=== PATIENT | male | born 1940 | race Caucasian/White ===

== ENCOUNTER → 2016-10-20 | Outpatient (CLI) | payer MEDICARE, OTHER ==
[~2016-10-20] MED LIST: ASPIRIN ADULT L81 M2 PO; ATORVASTATIN CA20 M1 PO; BACTRIM 400 MG-1 TAB PO; CALCIUM CARB500 MG PO; COLACE100 MG PO; FISH OIL500 M1 PO; KLOR-CON 1010 ME1 PO; LIDEX 0.05% CRE15 GM T; LOMOTIL 0.025 M1 TA1 PO; NORCO 5-325 TA1 EACH PO; PLAVIX75 M1 PO; PREDNISONE10 MG PO; RANEXA500 M1 PO; TAMSULOSIN HCL0.4 MG PO; VITAMIN B1250 MCG PO; VITAMIN D32000 UNIT PO; ZOSYN 4 GM-0.51 PD1 IV
== END | disposition home or self-care (01) ==
LOC: US 13:17
DX: N39.0 Urinary tract infection, site not specified (principal); N40.0 Benign prostatic hyperplasia without lower urinary tract symptoms; N28.1 Cyst of kidney, acquired; Z87.442 Personal history of urinary calculi

== ENCOUNTER 2020-11-25 15:11 | Inpatient (IN) | payer OTHER ==
[~2020-11-25] VITALS: Ht 182.8 cm; Wt 80.5 kg
[2020-11-25 16:17] VITALS: BP 138/72
[2020-11-25 16:59] LABS: BILIRUBIN 1+ (Negative); BLOOD 3+ (Negative); CLARITY Turbid (Clear); COLOR Dark Yellow (Yellow); GLUCOSE Trace (Negative); KETONE Trace (Negative); LEUKO ESTERASE 3+ (Negative); NITRITE Positive (Negative); PH 5.5 (4.5-8.0); SPECIFIC GRAVITY 1.025 (1.001-1.030)
[2020-11-25 17:20] LABS: BASO % 0.2 % (0.0-1.0); HEMATOCRIT 39.8 % (42.0-52.0); LYMPH # 1.1 10*3/uL (1.3-4.4); LYMPH % 5.8 % (27.0-41.0); MEAN CELL VOLUME 91.5 fl (80.0-94.0); MEAN CORPUSCULAR HGB 31.3 pg (27.0-31.0); MEAN CORPUSCULAR HGB CONC 34.2 g/dl (33.0-37.0); MONO # 1.2 10*3/uL (0.1-1.0); MONO % 6.5 % (3.0-9.0); NEUT # 16.4 10*3/uL (2.3-7.9); NEUT % 86.9 % (47.0-73.0); PLATELET COUNT AUTOMATED 184 10*3/uL (130-400); RED BLOOD COUNT 4.35 10*6/uL (4.50-5.90); RED CELL DISTRI WIDTH 12.6 % (0-14.5); WHITE BLOOD COUNT 18.9 10*3/uL (4.8-10.8)
[2020-11-25 17:28] LABS: WBC TNTC wbc/hpf (0-5)
[2020-11-25 17:44] LABS: ALBUMIN 3.4 gm/dl (3.1-4.5); ALKALINE PHOSPHATASE 91 U/L (45-117); BUN 17 mg/dl (7-24); CHLORIDE 104 mmol/L (98-107); CREATININE 1.26 mg/dL (0.70-1.30); POTASSIUM 3.7 mmol/L (3.5-5.1); SGOT/AST 16 IU/L (3-35); SGPT/ALT 26 U/L (12-78); SODIUM 135 mmol/L (136-145); TOTAL PROTEIN 6.8 gm/dL (6.4-8.2)
[2020-11-25 17:45] LABS: TROPONIN I < 0.015 ng/ml (<0.045)
[2020-11-25 22:00] VITALS: BP 159/63
[2020-11-26] VITALS: BP 150/68
[2020-11-26 06:15] LABS: BASO % 0.2 % (0.0-1.0); HEMATOCRIT 38.3 % (42.0-52.0); LYMPH # 1.1 10*3/uL (1.3-4.4); LYMPH % 6.6 % (27.0-41.0); MEAN CELL VOLUME 94.3 fl (80.0-94.0); MEAN CORPUSCULAR HGB 31.3 pg (27.0-31.0); MEAN CORPUSCULAR HGB CONC 33.2 g/dl (33.0-37.0); MEAN PLATELET VOLUME 10.5 fl (9.6-12.3); MONO # 0.9 10*3/uL (0.1-1.0); MONO % 5.5 % (3.0-9.0); NEUT % 86.6 % (47.0-73.0); PLATELET COUNT AUTOMATED 184 10*3/uL (130-400); RED BLOOD COUNT 4.06 10*6/uL (4.50-5.90); WHITE BLOOD COUNT 16.1 10*3/uL (4.8-10.8)
[2020-11-26 06:35] LABS: ALBUMIN 3.1 gm/dl (3.1-4.5); ALKALINE PHOSPHATASE 82 U/L (45-117); BUN 19 mg/dl (7-24); CHLORIDE 102 mmol/L (98-107); CREATININE 1.24 mg/dL (0.70-1.30); POTASSIUM 3.4 mmol/L (3.5-5.1); SGOT/AST 16 IU/L (3-35); SGPT/ALT 21 U/L (12-78); SODIUM 137 mmol/L (136-145); TOTAL PROTEIN 6.7 gm/dL (6.4-8.2)
[2020-11-26 08:00] VITALS: BP 122/62
[2020-11-26] MEDS ORDERED: VITAMIN B-121000 MC2 PO (10:02)
[2020-11-26 12:00] VITALS: BP 155/89
[2020-11-26 16:00] VITALS: BP 137/75
[2020-11-26 20:00] VITALS: BP 104/59
[2020-11-27] VITALS: BP 115/55
[2020-11-27 06:57] LABS: BASO % 0.2 % (0.0-1.0); EOS # 0.1 10*3/uL (0.0-0.4); EOS % 0.7 % (1.0-4.0); LYMPH # 1.6 10*3/uL (1.3-4.4); LYMPH % 14.7 % (27.0-41.0); MEAN CELL VOLUME 94.3 fl (80.0-94.0); MEAN CORPUSCULAR HGB 31.8 pg (27.0-31.0); MEAN CORPUSCULAR HGB CONC 33.7 g/dl (33.0-37.0); MEAN PLATELET VOLUME 10.4 fl (9.6-12.3); MONO # 0.7 10*3/uL (0.1-1.0); MONO % 6.2 % (3.0-9.0); NEUT # 8.5 10*3/uL (2.3-7.9); NEUT % 77.7 % (47.0-73.0); PLATELET COUNT AUTOMATED 160 10*3/uL (130-400); RED BLOOD COUNT 3.71 10*6/uL (4.50-5.90); RED CELL DISTRI WIDTH 13.1 % (0-14.5); WHITE BLOOD COUNT 10.9 10*3/uL (4.8-10.8)
[2020-11-27 07:05] LABS: ALBUMIN 2.7 gm/dl (3.1-4.5); ALKALINE PHOSPHATASE 76 U/L (45-117); BUN 15 mg/dl (7-24); CHLORIDE 106 mmol/L (98-107); CREATININE 0.96 mg/dL (0.70-1.30); POTASSIUM 3.8 mmol/L (3.5-5.1); SGOT/AST 18 IU/L (3-35); SGPT/ALT 21 U/L (12-78); SODIUM 137 mmol/L (136-145)
[2020-11-27 08:00] VITALS: BP 105/65
[2020-11-27] MEDS ORDERED: CIPRO500 MG PO (11:45)
== END 2020-11-27 13:25 | disposition home or self-care (01) | DRG 872 ==
LOC: ED 15:11 → EDHOLD 19:51 → 5E 19:51
PROVIDERS: Emergency Medicine; Internal Medicine; ADMIT Family Medicine; ATTEND Family Medicine
DX: A41.9 Sepsis, unspecified organism (principal); N30.01 Acute cystitis with hematuria; E44.1 Mild protein-calorie malnutrition; N41.0 Acute prostatitis; I25.810 Atherosclerosis of coronary artery bypass graft(s) without angina pectoris; N18.31 Chronic kidney disease, stage 3a; R73.9 Hyperglycemia, unspecified; D64.9 Anemia, unspecified; N40.1 Benign prostatic hyperplasia with lower urinary tract symptoms; E87.6 Hypokalemia; E78.5 Hyperlipidemia, unspecified; B96.20 Unspecified Escherichia coli [E. coli] as the cause of diseases classified elsewhere; R91.8 Other nonspecific abnormal finding of lung field; R39.12 Poor urinary stream; I50.9 Heart failure, unspecified; I25.2 Old myocardial infarction; Z95.1 Presence of aortocoronary bypass graft; Z86.14 Personal history of Methicillin resistant Staphylococcus aureus infection; Z87.440 Personal history of urinary (tract) infections; Z98.1 Arthrodesis status; Z82.49 Family history of ischemic heart disease and other diseases of the circulatory system; Z80.8 Family history of malignant neoplasm of other organs or systems; Z85.828 Personal history of other malignant neoplasm of skin; Z95.0 Presence of cardiac pacemaker; Z87.891 Personal history of nicotine dependence; Z79.899 Other long term (current) drug therapy; Z79.02 Long term (current) use of antithrombotics/antiplatelets; Z68.24 Body mass index [BMI] 24.0-24.9, adult

== ENCOUNTER 2022-06-24 09:46 | Emergency (ER) | payer MEDICARE ==
[~2022-06-24] VITALS: Wt 78.9 kg
[~2022-06-24 09:46] MED LIST changes: +CIPRO500 MG PO; +VITAMIN B-121000 MC2 PO
[2022-06-24] MEDS ORDERED: PREDNISONE10 MG PO (11:39)
[2022-06-24] MEDS ORDERED: TRAMADOL HCL50 MG PO (11:39)
== END 2022-06-24 11:52 | disposition home or self-care (01) ==
LOC: ED 09:46
DX: M54.50 Low back pain, unspecified (principal); Z79.899 Other long term (current) drug therapy; Z98.890 Other specified postprocedural states; Z87.891 Personal history of nicotine dependence

== ENCOUNTER 2023-08-27 14:14 | Emergency (ER) | payer MEDICARE ==
[~2023-08-27] VITALS: Ht 182.8 cm; Wt 74.4 kg
[~2023-08-27 14:14] MED LIST changes: +TRAMADOL HCL50 MG PO
[2023-08-27] MEDS ORDERED: DIAZEPAM 5 MG TAB PO ONE (15:05)
[2023-08-27] MEDS ORDERED: Acetaminophen/Oxycodone 5 MG/325 MG TABLET PO ONE (15:05)
[2023-08-27] MEDS ORDERED: TRAMADOL HCL50 MG PO (15:06)
[2023-08-27] MEDS ORDERED: METHOCARBAMOL500 M1 PO (15:06)
== END 2023-08-27 16:45 | disposition home or self-care (01) ==
LOC: ED 14:14
DX: M62.830 Muscle spasm of back (principal); E78.5 Hyperlipidemia, unspecified; I13.0 Hypertensive heart and chronic kidney disease with heart failure and stage 1 through stage 4 chronic kidney disease, or unspecified chronic kidney disease; N18.9 Chronic kidney disease, unspecified; I50.9 Heart failure, unspecified; I25.2 Old myocardial infarction; M19.90 Unspecified osteoarthritis, unspecified site; Z98.890 Other specified postprocedural states; Z87.891 Personal history of nicotine dependence

== ENCOUNTER 2024-04-06 14:34 | Emergency (ER) | payer MEDICARE ==
[~2024-04-06] VITALS: Ht 182.8 cm; Wt 80.7 kg
[~2024-04-06 14:34] MED LIST changes: +METHOCARBAMOL500 M1 PO
== END 2024-04-06 16:15 | disposition home or self-care (01) ==
LOC: ED 14:34
DX: S43.402A Unspecified sprain of left shoulder joint, initial encounter (principal); M79.632 Pain in left forearm; I10 Essential (primary) hypertension; I25.2 Old myocardial infarction; I25.10 Atherosclerotic heart disease of native coronary artery without angina pectoris; M19.90 Unspecified osteoarthritis, unspecified site; Z98.890 Other specified postprocedural states; Z87.891 Personal history of nicotine dependence; W10.9XXA Fall (on) (from) unspecified stairs and steps, initial encounter; Y93.89 Activity, other specified; Y92.89 Other specified places as the place of occurrence of the external cause; Y99.8 Other external cause status

== ENCOUNTER → 2024-11-25 | Outpatient (CLI) | payer MEDICARE | END | disposition home or self-care (01) | LOC: US 00:20 | PROVIDERS: ATTEND Physician Assistant | DX: M79.604 Pain in right leg (principal); M79.605 Pain in left leg; R20.9 Unspecified disturbances of skin sensation; I25.810 Atherosclerosis of coronary artery bypass graft(s) without angina pectoris; R53.1 Weakness; E78.2 Mixed hyperlipidemia; N40.1 Benign prostatic hyperplasia with lower urinary tract symptoms; R41.3 Other amnesia; R73.09 Other abnormal glucose; K22.0 Achalasia of cardia; R26.2 Difficulty in walking, not elsewhere classified; Z79.899 Other long term (current) drug therapy ==

== ENCOUNTER 2025-03-31 13:51 | Emergency (ER) | payer MEDICARE ==
[~2025-03-31] VITALS: Wt 80.7 kg
[~2025-03-31 13:51] MED LIST changes: +MIRABEGRON ER25 MG PO; +MIRALAX17 GM PO; +MULTIVITAMIN1 EACH PO; +NITROSTAT0.4 MG SL; +OMEPRAZOLE MAGN20 MG PO; +OMNICEF300 MG PO; +PROSCAR5 M1 PO
[2025-03-31 14:22] LABS: BASO # 0.0 10*3/uL (0.0-0.1); BASO % 0.6 % (0.0-1.0); EOS # 0.2 10*3/uL (0.0-0.4); EOS % 3.5 % (1.0-4.0); MEAN CELL VOLUME 91.2 fl (80.0-94.0); MEAN CORPUSCULAR HGB 30.1 pg (27.0-31.0); MEAN PLATELET VOLUME 10.3 fl (9.6-12.3); MONO # 0.6 10*3/uL (0.1-1.0); MONO % 8.7 % (3.0-9.0); NEUT # 3.7 10*3/uL (2.3-7.9); NEUT % 57.1 % (47.0-73.0); NUCLEATED RED BLOOD CELL 0.0 % (0.0-0.0); NUCLEATED RED BLOOD CELL 0.0 10*3/uL (0.0-0.0); PLATELET COUNT AUTOMATED 193 10*3/uL (130-400); RED CELL DISTRI WIDTH 12.8 % (0-14.5)
[2025-03-31 14:34] LABS: ACT PARTIAL THROMBO TIME 25.9 SECONDS (20.0-32.1)
[2025-03-31 14:42] LABS: BUN 21 mg/dl (9-23)
[2025-03-31] MEDS ORDERED: PREDNISONE20 M1 PO (15:00)
== END 2025-03-31 15:09 | disposition home or self-care (01) ==
LOC: ED 13:51
PROVIDERS: Nurse Practitioner Family
DX: L25.9 Unspecified contact dermatitis, unspecified cause (principal); I10 Essential (primary) hypertension; I25.2 Old myocardial infarction; I25.10 Atherosclerotic heart disease of native coronary artery without angina pectoris; M19.90 Unspecified osteoarthritis, unspecified site; Z98.890 Other specified postprocedural states; Z87.891 Personal history of nicotine dependence; Z79.01 Long term (current) use of anticoagulants